=== PATIENT | male | born 1990 ===

== ENCOUNTER 2024-06-12 17:15 | Emergency (ER) | payer OTHER, SELFPAY ==
[2024-06-12] VITALS (26 sets, daily range): BP systolic 141–167; BP diastolic 87–100; PULSE 117; RESP 16; O2SAT 96–98; BMI 24.6
--- NOTE | 2024-06-12 18:23 | ED.GENADULT ---
HPI - General Adult General Date Seen: 06/12/24 Chief complaint: Dental/Oral/Mouth Injury/Pain Stated complaint: L side toothache Time Seen by Provider: 06/12/24 18:23 History of Present Illness HPI narrative: 33 yo M with a history of azn-vbkrlvs-tyzwphogr diabetes presenting to the ER today with pain and swelling on his left cheek, left jaw. He has actually been having symptoms of dental pain that started over 2 weeks ago. It sounds like initially had some dental pain on the right molars but is now predominantly been having pain involving his left mandibular molars. It has been getting steadily worse over time. Since about 4 or 5 days ago he started developed swelling under his chin on the left cheek. He has been getting steadily worse, more swollen, and more painful. He has not had any fever. He does not check his blood sugars very often so does not know how it has been running. He has been taking his meds, however. His jaw and she gave been so swollen for the past couple of days that he has not been able to eat. He has been able to drink a few sips of water. Finally today it has gotten so swollen that he came here to the ER with his family. Related Data Home Medications ?Medication ?Instructions ?Recorded ?Confirmed ibuprofen PO 11/07/23 11/07/23 Allergies Allergy/AdvReac Type Severity Reaction Status Date / Time No Known Drug Allergies Allergy Verified 06/12/24 19:27 [facility] Social History Smoking Status: Never smoker Do you use any of these nicotine containing products: None How often do you have a drink containing alcohol: never AUDIT-C Alcohol total score: 0 Non-prescribed substance use: denies use service: No Exam Narrative: Exam Narrative: Primary Survey: A- he has trismus and I is only able to open his jaw to get about 1 cm between his incisors. However, he is breathing easily. Phonation normal. No stridor. B- breathing easily. Lung sounds clear and equal. Oxygen saturation normal on room air C- no active bleeding. Blood pressure stable. Symmetric pulses and cap refill in 4 extremities. D- alert and oriented x3. GCS 15. No focal deficits. Constitutional: Appears well-developed and well-nourished. Alert. Conversant. Non toxic. HENT: Head: Atraumatic. Nose: Nose normal. He has significant beefy swelling of the patient's left cheek . Also submandibular swelling , worse on the left side than on the right. His cheek and submandibular tissues are tender, firm, slightly warm to the touch. No definite palpable fluctuance. He has trismus. Only able to open his mouth to get about 1 cm between his incisors. He is able to stick out his tongue and that looks normal. Using a tongue depressor I am able to visualize part of his intraoral mucosa, which does look moist. He seems to have a lot of swelling of his gums adjacent to his left mandibular molars. I am not able to see his pharynx because he is not able open his mouth. Mouth/Throat: Eyes: Conjunctivae normal. EOM normal. Pupils equal, round, and reactive to light. No scleral icterus. Neck: Normal range of motion. Neck supple. No tracheal deviation present. Cardiovascular: Normal rate, regular rhythm. No gallop. No friction rub. No murmur heard. Symmetric radial artery pulses Pulmonary/Chest: Effort normal. No stridor. No respiratory distress. No wheezes. No rales. No rhonchi . No tenderness. Abdominal: Soft. No distension. No mass. No tenderness. No rebound. No guarding. Musculoskeletal: RUE: Normal range of motion. No tenderness. No deformity LUE: Normal range of motion. No tenderness. No deformity RLE: Normal range of motion. No edema. No tenderness. No deformity LLE: Normal range of motion. No edema. No tenderness. No deformity Lymph: Anterior cervical adenopathy. Neurological: Alert and oriented to person, place, and time. Normal strength. CN II-VII intact. No sensory deficit. GCS eye subscore is 4. GCS verbal subscore is 5. GCS motor subscore is 6. Normal coordination Skin: Skin is warm and dry. No rash noted. No pallor. Normal capillary refill. Psychiatric: Normal mood. Normal affect. Const: Vital Signs, click to edit/add: Vital Signs - 24 hr 06/12/24 17:35 06/12/24 17:58 06/12/24 18:00 Pulse Rate [Right Radial] 117 H Respiratory Rate 16 Blood Pressure [Ri ght Upper Arm] 141/87 H Pulse Oximetry 98 98 97 Oxygen Delivery Me thod Room Air 06/12/24 18:01 06/12/24 18:02 06/12/24 18:10 Pulse Rate [Right Radial] Respiratory Rate Blood Pressure [Ri ght Upper Arm] Pulse Oximetry 98 98 97 Oxygen Delivery Me thod 06/12/24 18:20 06/12/24 18:30 06/12/24 18:31 Pulse Rate [Right Radial] Respiratory Rate Blood Pressure [Ri ght Upper Arm] Pulse Oximetry 97 98 98 Oxygen Delivery Me thod 06/12/24 18:40 06/12/24 18:50 06/12/24 19:00 Pulse Rate [Right Radial] Respiratory Rate Blood Pressure [Ri ght Upper Arm] Pulse Oximetry 98 98 98 Oxygen Delivery Me thod 06/12/24 19:01 06/12/24 20:03 06/12/24 20:04 Pulse Rate [Right Radial] Respiratory Rate Blood Pressure [Ri ght Upper Arm] Pulse Oximetry 98 98 97 Oxygen Delivery Me thod 06/12/24 20:10 06/12/24 20:20 06/12/24 20:28 Pulse Rate [Right Radial] Respiratory Rate Blood Pressure [Ri ght Upper Arm] 156/97 H Pulse Oximetry 96 96 Oxygen Delivery Me thod 06/12/24 20:30 06/12/24 20:32 06/12/24 20:33 Pulse Rate [Right Radial] Respiratory Rate Blood Pressure [Ri ght Upper Arm] Pulse Oximetry 97 97 97 Oxygen Delivery Me thod 06/12/24 20:40 06/12/24 20:40 06/12/24 20:51 Pulse Rate [Right Radial] Respiratory Rate Blood Pressure [Ri ght Upper Arm] 167/100 H Pulse Oximetry 97 97 96 Oxygen Delivery Me thod 06/12/24 21:00 06/12/24 21:01 06/12/24 21:10 Pulse Rate [Right Radial] Respiratory Rate Blood Pressure [Ri ght Upper Arm] Pulse Oximetry 97 97 97 Oxygen Delivery Me thod Course Vital Signs Vital signs: Initial Vital Signs Pulse Rate 117 H 06/12/24 17:35 Pulse Rhythm Regular 06/12/24 17:35 Respiratory Rate 16 06/12/24 17:35 Blood Pressure 141/87 H 06/12/24 17:35 Blood Pressure Mean 105 06/12/24 17:35 Pulse Oximetry 98 06/12/24 17:35 Oxygen Delivery Method Room Air 06/12/24 17:35 Vital Signs Pulse Rate 117 H 06/12/24 17:35 Respiratory Rate 16 06/12/24 17:35 Blood Pressure 141/87 H 06/12/24 17:35 Pulse Oximetry 98 06/12/24 17:35 Oxygen Delivery Method Room Air 06/12/24 17:35 Pulse Rate 117 H 06/12/24 17:35 Respiratory Rate 16 06/12/24 17:35 Blood Pressure 167/100 H 06/12/24 20:40 Pulse Oximetry 97 06/12/24 21:10 Oxygen Delivery Method Room Air 06/12/24 17:35 Medications Administered Medications: Discontinued Medications Generic Name Dose Route Start Last Admin Trade Name Freq PRN Reason Stop Dose Admin Dexamethasone 10 mg 06/12/24 18:45 06/12/24 19:03 Dexamethasone 10 Mg/Ml Inj IVP 06/12/24 18:46 10 mg ONCE ONE Administration Fentanyl 50 mcg 06/12/24 18:45 06/12/24 18:56 Fentanyl 100 Mcg/2 Ml Inj IVP 06/12/24 18:46 50 mcg ONCE ONE Administration Fentanyl 50 mcg 06/12/24 19:54 06/12/24 20:02 Fentanyl 100 Mcg/2 Ml Inj IVP 50 mcg Q5M PRN Administration Clindamycin Phosphate 600 mg in 50 mls @ 100 mls/hr 06/12/24 18:46 06/12/24 20:29 Clindamycin 600 Mg/50 Ml-D5w IVPB 06/12/24 19:15 Infused ONCE ONE Infusion Sodium Chloride 500 mls @ 500 mls/hr 06/12/24 18:45 06/12/24 20:29 0.9 % Sodium Chloride 500 Ml IV 06/12/24 19:44 Infused .Q1H ONE Infusion Sodium Chloride 500 mls @ 500 mls/hr 06/12/24 19:31 06/12/24 20:30 0.9 % Sodium Chloride 500 Ml IV 06/12/24 20:30 Infused .Q1H ONE Infusion Ceftriaxone Sodium 1 gm/ 100 mls @ 200 mls/hr 06/12/24 21:25 06/12/24 22:44 Sodium Chloride IVPB 06/12/24 21:26 Infused ONCE ONE Infusion Ondansetron HCl 4 mg 06/12/24 18:45 06/12/24 19:02 Ondansetron 2 Mg/Ml Inj IVP 06/12/24 18:46 4 mg ONCE ONE Administration Medical Decision Making MDM Narrative Medical decision making narrative: 33-year-old gentleman with history of type 2 diabetes presenting to the ER today with what sounds like a dental infection leading to a facial and submandibular cellulitis. Symptoms have been evolving over the past 2 weeks or so. He is not currently on any antibiotics. Presentation at the bedside is concerning for Americo's angina. He definitely has trismus. Fortunately his airway is patent at this point. If he were to need airway intervention, we would likely not be able to achieve an or tracheal intubation it would have to perform nasal tracheal or surgical airway. At this point, though, he is protecting his airway and does not require any intervention. Laboratory workup shows a white count elevated consistent with an infection. He also has a glucose of 222. No evidence for DKA are nonketotic hyperosmolar syndrome. Expect glucose will come down with IV fluids. Hold off on insulin for now to avoid hypoglycemia. He is treated with broad-spectrum antibiotics for adult genic facial infection. Clindamycin initially, and per accepting citrix engineer request we added Rocephin. CT scan does show evidence for a submandibular abscess, as well. He clearly require hospitalization. Will also require oral maxillofacial surgery consultation to drain the abscess. Transfer is indicated to higher level care so he can be monitored in ICU to watch for any sign of evolving airway compromise, and if present, can be managed in his center with specialty coverage such as ENT to assess with surgical airway. At this point, it is clear that his airway is patent he is not requiring any airway intervention prior to transfer. Additionally will need a center with oral maxillofacial surgery. [place] [facility] [place] and [place] the patient We contacted [facility] through the a transfer line. They have immediate availability of an ICU bed. Patient is accepted by Dr. Bess. He is transferred by EMS. Lab Data Labs: Lab Results 06/12/24 Range/Units 18:37 WBC 12.27 H (4.50-11.00) K/uL RBC 4.85 (4.30-5.90) m/uL Hgb 13.6 (13.5-17.5) gm/dL Hct 40.3 (37.0-53.0) % MCV 83 (80-100) fL MCH 28 (26-34) pg MCHC 34 (32-36) gm/dL RDW Coeff of Charity 11.8 (11.5-15.5) % Plt Count 336 (140-440) K/uL Neut % (Auto) 78.7 H (42.0-72.0) % Lymph % (Auto) 11.7 L (20-44) % [place] % (Auto) 8.9 (0.0-11.0) % Eos % (Auto) 0.4 (0.0-7.0) % Baso % (Auto) 0.2 (0.0-3.0) % Neut # (Auto) 9.70 H (1.7-7.0) K/uL Lymph # (Auto) 1.40 (0.90-2.90) K/uL [place] # (Auto) 1.10 H (0.00-0.90) K/UL Eos # (Auto) 0.00 (0.00-0.50) K/uL Baso # (Auto) 0.00 (0.00-0.30) K/uL Abs Immat Gran (auto) 0.00 (0.00-0.30) K/uL Imm/Tot Granulo (auto) 0.1 % VBG pH 7.399 (7.32-7.43) VBG pCO2 45 (40-50) mmHG VBG pO2 39.9 (25-47) mmHG VBG HCO3 28 (21-28) mmol/L Sodium 136 (135-149) mmol/L Potassium 4.0 (3.6-5.1) mmol/L Chloride 99 (96-114) mmol/L Carbon Dioxide 26 (20-32) mmol/L Anion Gap 11 (7-15) mEq/L BUN 18 (5-24) mg/dL Creatinine 0.6 (0.5-1.5) mg/dL Estimated Creat Clear 132.71 Estimated GFR 129 ml/min Glucose 222 H (60-115) mg/dL Calcium 10.0 (8.4-10.6) mg/dL Imaging Data CT neck soft tissue: Attestation: I have reviewed the pertinent imaging results. Radiologist's impression: IMPRESSION: 1. Low attenuation in the left submandibular space measuring 2.3 x 1.3 x 1.5 cm abuts the medial border of the mandible and is worrisome for abscess. 2. Abscess is likely due to dental disease in the adjacent posterior most left mandibular molar. 3. Ill-defined soft tissue edema cause mild mass effect on the adjacent airway which extends into the left supraglottic airway. 4. Cervical lymphadenopathy is likely reactive. Discharge Plan Discharge Clinical Impression: Angina, Americo Patient Disposition: Xfer Other Activity Level: No Restrictions Discharge Diet: Regular Prescriptions: No Action ibuprofen PO Stand Alone [facility]: [facility] Inst[facility] Discharge Comment: Pt was discharged to [facility] via EMS.
--- NOTE | 2024-06-12 18:45 | CRLHL7_ITS ---
For Patients: As a result of the Century Cures Act, medical imaging exams and procedure reports are released immediately into your electronic medical record. You may view this report before your referring provider. If you have questions, please contact your health care provider. INDICATION: Neck swelling. History of Americo`s angina. TECHNIQUE: CT soft tissue of the neck was acquired with 68 cc of Isovue 370 IV contrast. COMPARISON: None available. FINDINGS: There is a heterogeneous low-attenuation focus abutting the medial aspect of the ramus/angle of the mandible that measures 2.3 x 1.3 x 1.5 cm in greatest craniocaudal, transverse and AP dimension, for example on axial image 29 of series 3 within the submandibular space. This causes mild mass effect on the submandibular gland and adjacent airway. Ill-defined soft tissue edema extends into the left supraglottic airway. There is additional adjacent ill-defined soft tissue swelling and subcutaneous stranding in the left mandibular and submandibular regions of the neck extending to the level of the thyroid gland. No additional soft tissue fluid collection. There is underlying dental disease with dental jhoana and periapical lucency involving the posterior most remaining left mandibular molar (axial image 29). Multiple enlarged cervical lymph nodes, left greater than right are likely reactive. Parotid and submandibular glands: Unremarkable. Thyroid gland: Unremarkable. Vessels: Major vascular structures are grossly patent. Paranasal sinuses and orbits: Unremarkable as imaged. Bones: No acute or suspicious osseous abnormality. Lung apices: Visualized lung apices are clear. IMPRESSION: 1. Low attenuation in the left submandibular space measuring 2.3 x 1.3 x 1.5 cm abuts the medial border of the mandible and is worrisome for abscess. 2. Abscess is likely due to dental disease in the adjacent posterior most left mandibular molar. 3. Ill-defined soft tissue edema cause mild mass effect on the adjacent airway which extends into the left supraglottic airway. 4. Cervical lymphadenopathy is likely reactive. Dictated by Yonathan Conner MD @ 06/12/2024 8:33:12 PM Please note that all CT scans at this facility use dose modulation, iterative reconstruction, and/or weight-based dosing when appropriate to reduce radiation dose to as low as reasonably achievable. Dictated by: Yonathan Conner MD @ 06/12/2024 20:33:42 (Electronically Signed)
[2024-06-12 18:51] LABS: HCO3 VBG 28 mmol/L (21-28); PCO2 VBG 45 mmHG (40-50); PO2 VBG 39.9 mmHG (25-47); pH VBG 7.399 (7.32-7.43)
[2024-06-12 18:53] LABS: Basophils Percent Auto 0.2 % (0.0-3.0); Eosinophils Percent Auto 0.4 % (0.0-7.0); Hematocrit 40.3 % (37.0-53.0); Hemoglobin* 13.6 gm/dL (13.5-17.5); Immature Granulocytes Pct Auto 0.1 %; Lymphocytes Percent Auto 11.7 % (20-44); Mean Corpuscular HGB Conc 34 gm/dL (32-36); Mean Corpuscular Hemoglobin 28 pg (26-34); Mean Corpuscular Volume 83 fL (80-100); Monocytes Percent Auto 8.9 % (0.0-11.0); Neutrophils Percent Auto 78.7 % (42.0-72.0); Platelet Count* 336 K/uL (140-440); RDW Coefficient of Variation % 11.8 % (11.5-15.5); Red Blood Count 4.85 m/uL (4.30-5.90); White Blood Count* 12.27 K/uL (4.50-11.00)
[2024-06-12 18:56] LABS: Slide Review Reflex No
[2024-06-12] MEDS: fentaNYL 100 MCG/2 ML inj 50 MCG IVP ×2 (18:56→20:02)
[2024-06-12] MEDS: ONDANSETRON 2 MG/ML inj 4 MG IVP (19:02)
[2024-06-12] MEDS: dexAMETHasone 10 MG/ML inj IVP (19:03)
[2024-06-12 19:08] LABS: Chloride* 99 mmol/L (96-114); Sodium* 136 mmol/L (135-149)
[2024-06-12 19:11] LABS: Anion Gap 11 mEq/L (7-15); Blood Urea Nitrogen* 18 mg/dL (5-24); Carbon Dioxide* 26 mmol/L (20-32); Creatinine* 0.6 mg/dL (0.5-1.5); Est. Creatinine Clearance* 132.71; Estimated Glomerular Filt Rate 129 ml/min; Glucose* 222 mg/dL (60-115)
[2024-06-12] MEDS: 0.9 % SODIUM CHLORIDE 500 ML 500 ML IV ×2 (19:49→19:50)
[2024-06-12] MEDS: CLINDAMYCIN 600 MG/50 ML-D5W 600 MG/50 ML PIGGYBACK 100 MG IVPB (19:50)
[2024-06-12] MEDS: cefTRIAXone 1 GM in 0.9 % SODIUM CHLORIDE Mini-bag 100 ML IVPB (21:58)
== END 2024-06-12 23:10 | disposition other institution (70) ==
LOC: ED 19:34
PROVIDERS: Emergency Provider Emergency Medicine
DX: K12.2 Cellulitis and abscess of mouth (principal)
CPT/HCPCS: 36415; 70491; 80048; 82803; 85025; 93005; 96365; 96367; 96375; 99284; 99285; J0696; J0736; J1100; J2405; J3010; J7030; Q9967

== ENCOUNTER 2024-06-12 23:08 | Outpatient (CLI) | payer OTHER, SELFPAY | END 2024-06-12 23:09 | disposition home or self-care (01) | LOC: AMB 07-03 09:38 | PROVIDERS: Visit Provider Emergency Medicine | DX: K12.2 Cellulitis and abscess of mouth (principal) | CPT/HCPCS: A0425; A0429 ==

== ENCOUNTER 2024-07-28 08:03 | Emergency (ER) | payer OTHER, SELFPAY ==
[2024-07-28 08:22] VITALS: BP 139/85; PULSE 81; RESP 18; TEMP 36.6; O2SAT 98; BMI 26.2
--- NOTE | 2024-07-28 10:40 | ED.GENADULT ---
HPI - General Adult General Date Seen: 07/28/24 Chief complaint: Post Op Complication Stated complaint: post op complications - drain Time Seen by Provider: 07/28/24 08:05 Source: patient and refrigeration technician Mode of arrival: ambulatory Limitations: language barrier History of Present Illness HPI narrative: Patient is a 34-year-old male, Divehi speaking, history obtained with the assistance of an refrigeration technician. He was seen here back in June, transferred initially to a tertiary hospital and it sounds like transferred from there to [facility] where he had a submandibular abscess drained. I have his discharge instructions from that visit, he was supposed to follow-up with [facility] in 1-2 weeks after discharge on June 15, for removal of the drain was placed. He tells me that he has a family member who had called about the appointment, they speak Occitan and so they are kind of the appointed person in the family to manage this sort of thing. He believes that they left a message at the clinic but never heard anything back, so he never followed up. The drain fell out today and he was not sure what to do. No other complaints. Related Data Home Medications ?Medication ?Instructions ?Recorded ?Confirmed ibuprofen PO 11/07/23 11/07/23 glipizide 10 mg tablet, extended 10 mg PO DAILY diabetes mellitus 07/28/24 07/28/24 release 24 hr losartan 25 mg tablet 25 mg PO DAILY 07/28/24 07/28/24 metformin 1,000 mg tablet 1,000 mg PO BID 07/28/24 07/28/24 Allergies Allergy/AdvReac Type Severity Reaction Status Date / Time No Known Drug Allergies Allergy Verified 06/12/24 19:27 [facility] Social History Smoking Status: Never smoker Do you use any of these nicotine containing products: None How often do you have a drink containing alcohol: never AUDIT-C Alcohol total score: 0 Non-prescribed substance use: denies use service: No Exam Narrative: Exam Narrative: Vital signs reviewed In general, alert, well-appearing young man. Voice is normal. ENT: The previously placed drain has fallen out of the left submandibular space. There is a small wound there with no drainage, erythema, swelling, or tenderness. Oropharynx is normal. Neck: Supple, no masses or adenopathy. Const: Vital Signs, click to edit/add: Vital Signs - 24 hr 07/28/24 08:22 Temperature 98 F Pulse Rate [Pulse Oximeter] 81 Respiratory Rate 18 Blood Pressure [Ri ght Upper Arm] 139/85 Pulse Oximetry 98 Oxygen Delivery Me thod Room Air Documenting provider has reviewed patient's vital signs: yes Course Course ED Course: Reviewed with him that it is okay that the drain has come out as the plan was to take it out after week or 2 back in June. At this point, would just let this heal. He does have diabetes and wondered if there is anything special he should do. Discussed routine wound care, reasons to return such as increasing swelling, redness, pain, fevers drainage etcetera. I reiterated the phone number for [facility] if he needs to discuss further questions. Vital Signs Vital signs: Initial Vital Signs Temperature 98 F 07/28/24 08:22 Temperature Source Temporal Artery Scan 07/28/24 08:22 Pulse Rate 81 07/28/24 08:22 Respiratory Rate 18 07/28/24 08:22 Blood Pressure 139/85 07/28/24 08:22 Blood Pressure Mean 103 07/28/24 08:22 Pulse Oximetry 98 07/28/24 08:22 Oxygen Delivery Method Room Air 07/28/24 08:22 Vital Signs Temperature 98 F 07/28/24 08:22 Pulse Rate 81 07/28/24 08:22 Respiratory Rate 18 07/28/24 08:22 Blood Pressure 139/85 07/28/24 08:22 Pulse Oximetry 98 07/28/24 08:22 Oxygen Delivery Method Room Air 07/28/24 08:22 Temperature 98 F 07/28/24 08:22 Pulse Rate 81 07/28/24 08:22 Respiratory Rate 18 07/28/24 08:22 Blood Pressure 139/85 07/28/24 08:22 Pulse Oximetry 98 07/28/24 08:22 Oxygen Delivery Method Room Air 07/28/24 08:22 Discharge Plan Discharge Clinical Impression: Encounter for post surgical wound check Patient Disposition: Home, Self-Care Condition: Stable Additional Instructions: Mantenga esta ?shari cubierta con un poco de pomada y trinidad venda wyatt la pr?xima semana o dos mientras termina de sanar. Si presenta enrojecimiento, hinchaz?n, aumento del dolor o drenaje, debe acudir nuevamente. Si tiene otras preguntas, puede llamar al [phone] para hablar con alguien de la cl?liam de cirug?a. Keep this area covered with a little ointment and a bandage over the next week or 2 while it finishes healing. If you develop redness, swelling, increasing pain or drainage, you should be seen again. If you have other questions, you can call [phone] to talk to someone at the surgery clinic. Prescriptions: No Action ibuprofen PO glipizide 10 mg tablet extended release 24hr 10 mg PO DAILY metformin 1,000 mg tablet 1,000 mg PO BID losartan 25 mg tablet 25 mg PO DAILY Follow Up/Referrals: Provider,Not a Local [Primary Care Provider] - Stand Alone Forms: [facility] Info Instructions
== END 2024-07-28 09:11 | disposition home or self-care (01) ==
LOC: ED 09:05
PROVIDERS: Emergency Provider Emergency Medicine
DX: T81.89XA Other complications of procedures, not elsewhere classified, initial encounter (principal)
CPT/HCPCS: 99283; T1013